=== PATIENT | female | born 1990 | race Hispanic/Latino ===

== ENCOUNTER 2017-04-19 17:41 | Emergency (ER) | payer OTHER ==
[2017-04-19 17:51] VITALS: BP 125/69; PULSE 80; RESP 16; TEMP 99; O2SAT 99
--- NOTE | 2017-04-19 18:34 | ED PDOC ---
HPI: Allergic Reaction Time Seen by Provider: 04/19/17 17:51 Chief Complaint (Nursing): Abnormal Skin Integrity Chief Complaint (Provider): Itchy and Red Rash History Per: Patient History/Exam Limitations: no limitations Onset/Duration Of Symptoms: Days (x4 days) Current Symptoms Are (Timing): Still Present Context: Food Associated Symptoms: Itching, Redness Additional Complaint(s): Mary Johnson, a 26 year old female, presents to the ED complaining of a skin irritation. The patient states that on sunday night she ate some tuna and the next morning she woke up with a red itchy rash. She states thats he was seen by a doctor who put her on a 4 day course of predisone as well as xantac. Patient states she has had salmon before but has not had a reaction like this. Past Medical History Reviewed: Historical Data, Nursing Documentation, Vital Signs Vital Signs: Last Vital Signs Temp 99.0 F 04/19/17 17:47 Pulse 80 04/19/17 17:47 Resp 16 04/19/17 17:47 BP 125/69 04/19/17 17:47 Pulse Ox 99 04/19/17 17:47 - Medical History PMH: No Chronic Diseases - Surgical History Surgical History: No Surg Hx - Family History Family History: States: Unknown Family Hx - Home Medications Home Medications: Ambulatory Orders Medication Instructions Recorded DiphenhydrAMINE [Benadryl] 50 mg PO Q6H PRN #20 cap 04/19/17 Loratadine [Claritin] 10 mg PO DAILY #7 tab 04/19/17 predniSONE [predniSONE Tab] 20 mg PO DAILY #3 tab 04/19/17 - Allergies Allergies/Adverse Reactions: Allergies Allergy/AdvReac Type Severity Reaction Status Date / Time Penicillins Allergy RASH Verified 04/19/17 17:51 Review of Systems Skin: Positive for: Rash (Red itchy rash all about the body) Physical Exam - Reviewed Nursing Documentation Reviewed: Yes Vital Signs Reviewed: Yes - Physical Exam Appears: Positive for: Non-toxic, No Acute Distress Skin: Positive for: Normal Color, Warm, Dry, Rash (Raised erythematous rash on the face and arms) Eye Exam: Positive for: Normal appearance, EOMI, PERRL ENT: Positive for: Normal ENT Inspection Neck: Positive for: Normal Cardiovascular/Chest: Positive for: Regular Rate, Rhythm Respiratory: Positive for: Normal Breath Sounds. Negative for: Accessory Muscle Use, Respiratory Distress Neurologic/Psych: Positive for: Alert, Oriented, Gait - Laboratory Results Result Diagrams: 04/19/17 19:15 04/19/17 19:15 - ECG O2 Sat by Pulse Oximetry: 99 (RA) Pulse Ox Interpretation: Normal - Progress ED Course And Treament: 1751 Initial Impression: 26 year old female presenting with rash Initial Plan: * Benadryl 50mg PO * Claritin 10mg PO * CBC * Comp Metabolic Panel * Reevaluation Scribe Attestation Documented by Ashley Desai acting as a scribe for Sofía Dao PA-C. Scribe Attestation All medical record entries made by the Scribe were at my direction and personally dictated by me. I have reviewed the chart and agree that the record accurately reflects my personal performance of the history, physical exam, medical decision making, and the department course for this patient. I have also personally directed, reviewed, and agree with the discharge instructions and disposition. Disposition - Clinical Impression Clinical Impression: Urticaria - Disposition Disposition: Routine/Home Disposition Time: 20:54 Condition: GOOD Additional Instructions: 3 tabs 04/20 (fri) 2 tabs 04/21 (sat) 2 tabs 04/22 (sun) 1 tab 04/23 (mon) 1 tab 04/24 () Benadry/diphehydramine every 6 hours as needed. Claritin daily. Zantac daily. Prescriptions: DiphenhydrAMINE [Benadryl] 50 mg PO Q6H PRN #20 cap PRN Reason: Itching / Pruritus Loratadine [Claritin] 10 mg PO DAILY #7 tab predniSONE [predniSONE Tab] 20 mg PO DAILY #3 tab Instructions: Urticaria (ED) Forms: [employer] ([place])
[2017-04-19 19:21] LABS: BASO # 0.1 K/uL (0.0-0.2); BASO % 0.5 % (0.0-2.0); HEMATOCRIT 42.2 % (34.0-47.0); LYMPH # 0.7 K/uL (1.0-4.3); LYMPH % 5.5 % (20.0-40.0); MEAN CORPUSCULAR HEMOGLOBIN 32.1 pg (27.0-31.0); MEAN CORPUSCULAR HGB CONC 33.4 g/dL (33.0-37.0); MEAN PLATELET VOLUME 8.4 fl (7.2-11.7); MONO # 0.3 K/uL (0.0-0.8); MONO % 2.1 % (0.0-10.0); NEUT # 12.2 K/uL (1.8-7.0); NEUT % 91.9 % (50.0-75.0); PLATELET COUNT 245 K/uL (130-400); RED CELL DISTRIBUTION WIDTH 11.5 % (11.5-14.5); WHITE BLOOD COUNT 13.3 K/uL (4.8-10.8)
[2017-04-19 19:44] LABS: ALB/GLOB RATIO 1.5 (1.0-2.1); ALKALINE PHOSPHATASE 48 U/L (38-126); ALT/SGPT 30 U/L (9-52); AST/SGOT 23 U/L (14-36); BILIRUBIN,TOTAL 0.5 mg/dl (0.2-1.3); BLOOD UREA NITROGEN 14 mg/dl (7-17); CALCIUM 10.4 mg/dL (8.4-10.2); CARBON DIOXIDE 23 mmol/L (22-30); CHLORIDE 104 mmol/L (98-107); GFR AFRICAN-AMERICAN > 60; GLUCOSE,RANDOM 136 mg/dL (65-105); POTASSIUM 4.2 MMOL/L (3.6-5.0); SODIUM 141 mmol/l (132-148); TOTAL PROTEIN 8.5 G/DL (6.3-8.2)
[2017-04-19 21:51] LABS: NEUTROPHIL 83 % (42-75); TOTAL CELLS COUNTED 100
== END 2017-04-19 21:51 | disposition home or self-care (01) ==
LOC: H.ER 17:41
DX: L50.9 Urticaria, unspecified (principal); Z88.0 Allergy status to penicillin